=== PATIENT | female | born 1995 | race African-American/Black ===

== ENCOUNTER → 2017-01-08 | Outpatient (CLI) | payer OTHER ==
[~2017-01-08] MED LIST: BCPILLS PO
--- NOTE | 2017-01-08 10:55 | DIAGNOSTIC IMAGING REPORT ---
MANDIBLE 5 VIEWS CLINICAL HISTORY: Jaw pain. History of mandibular dislocation. FINDINGS: 5 views of the mandible are obtained. No prior studies are available for comparison at the time of dictation. The skeletal structures are well mineralized. There is no radiographic evidence of mandibular fracture. The temporomandibular joints appear to be in anatomic alignment. The bony orbits are intact as visualized. The paranasal sinuses and mastoid air cells are clear as imaged. The visual is calvarium appears intact. The imaged apical lung parenchyma appears clear. IMPRESSION: Unremarkable radiographic assessment of the mandible. Electronically signed by: Abhishek Palmer M.D. 01/08/2017 10:54 AM Dictated Date/Time: 01/08/2017 10:53 AM
== END | disposition home or self-care (01) ==
LOC: C.RDSM 09:50
PROVIDERS: ATTEND Family Medicine
DX: S03.00XA Dislocation of jaw, unspecified side, initial encounter (principal); X58.XXXA Exposure to other specified factors, initial encounter

== ENCOUNTER → 2017-02-13 | Outpatient (CLI) | payer OTHER ==
--- NOTE | 2017-02-13 11:41 | DIAGNOSTIC IMAGING REPORT ---
RIGHT SHOULDER 3 VIEWS CLINICAL HISTORY: Right shoulder pain. FINDINGS: 3 views of the right shoulder are obtained. No prior studies are available for comparison at the time of dictation. The skeletal structures are well mineralized. No fracture or dislocation is seen. The joint spaces are well-maintained. The Overlying soft tissues are normal in appearance. The imaged right lung parenchyma appears clear. IMPRESSION: Unremarkable radiographic assessment of the right shoulder. Electronically signed by: Abhishek Palmer M.D. 02/13/2017 11:39 AM Dictated Date/Time: 02/13/2017 11:38 AM
--- NOTE | 2017-02-13 11:41 | DIAGNOSTIC IMAGING REPORT ---
RIGHT FOOT MIN 3 VIEWS CLINICAL HISTORY: RIGHT FOOT/ANKLE AND SHOULDER PAIN Right pain COMPARISON: None. DISCUSSION: The bones and joint spaces appear intact. There is no evidence of fracture, dislocation or bony disease. There is no evidence for soft tissue swelling. IMPRESSION: Negative study. Electronically signed by: Lux Downey M.D. 02/13/2017 11:39 AM Dictated Date/Time: 02/13/2017 11:39 AM
--- NOTE | 2017-02-13 11:42 | DIAGNOSTIC IMAGING REPORT ---
RIGHT ANKLE MIN 3 VIEWS CLINICAL HISTORY: RIGHT FOOT/ANKLE AND SHOULDER PAIN Right pain COMPARISON: None. DISCUSSION: The bones and joint spaces appear intact. There is no evidence of fracture, dislocation or bony disease. There is no evidence for soft tissue swelling. IMPRESSION: Negative study. Electronically signed by: Lux Downey M.D. 02/13/2017 11:41 AM Dictated Date/Time: 02/13/2017 11:41 AM
== END | disposition home or self-care (01) ==
LOC: C.RDSM 14:24
PROVIDERS: ATTEND Family Medicine
DX: M25.571 Pain in right ankle and joints of right foot (principal); M25.511 Pain in right shoulder

== ENCOUNTER → 2017-05-20 | Outpatient (CLI) | payer OTHER ==
--- NOTE | 2017-05-20 15:03 | DIAGNOSTIC IMAGING REPORT ---
L FINGER(S) MIN 2 VIEWS HISTORY: 21 years-old Female LEFT 4TH FINGER PAIN S/P INJURY acute left fourth digit pain status post trauma COMPARISON: None available TECHNIQUE: 3 views of the fingers with attention to the fourth digit FINDINGS: There is an acute obliquely oriented fracture of the fourth middle phalanx with fracture line extending into the periarticular portion of the distal aspect middle phalanx medially. There is approximately 1 mm impaction with slight radial displacement of less than one cortex width. There is mild associated soft tissue swelling. No opaque foreign body. IMPRESSION: Acute obliquely oriented fracture of the fourth middle phalanx as above with mild soft tissue swelling. The above report was generated using voice recognition software. It may contain grammatical, syntax or spelling errors. Electronically signed by: Milind Rodriguez M.D. 05/20/2017 3:02 PM Dictated Date/Time: 05/20/2017 3:00 PM
== END | disposition home or self-care (01) ==
LOC: C.RDSM 12:16
PROVIDERS: ATTEND Family Medicine
DX: S62.621A Displaced fracture of middle phalanx of left index finger, initial encounter for closed fracture (principal); X58.XXXA Exposure to other specified factors, initial encounter

== ENCOUNTER 2017-07-19 21:07 | Emergency (ER) | payer OTHER ==
[~2017-07-19] VITALS: Ht 157.5 cm; Wt 68.2 kg
[2017-07-19 21:16] VITALS: TEMP 36.7; Ht 157.5 cm; Wt 68.2 kg
[2017-07-19] MEDS ORDERED: BCPILLS PO (21:37)
[2017-07-19] MEDS ORDERED: PROPARACAINE HCL 0.5% OP SOLN 15 ML BTL ONE (21:38)
[2017-07-19] MEDS ORDERED: CIPROFLOXACIN HCL 0.3% OP SOLN 2.5 ML BTL OP ONE (22:00)
[2017-07-19] MEDS ORDERED: NORCO 5/325MG HOME PACK PO ONE (22:00)
[2017-07-19 22:06] VITALS: BP 127/83; PULSE 83; O2SAT 99
--- NOTE | 2017-07-19 23:06 | EMERGENCY ROOM VISIT NOTE ---
ED Visit Note First contact with patient: 21:31 CHIEF COMPLAINT: Eye pain HISTORY OF PRESENT ILLNESS: This 21-year-old female patient presents to the emergency department complaining of pain in the left eye for the past 12 hours eye. She states her symptoms began earlier this morning and she has had tearing and watering from the eye since then. She feels like there is a foreign body, but she is not able to identify 1. There has been a constant moderate pain and irritation, redness and tearing in the eye. There is a mild blurring of vision at times and light bothers the eye. The vision has not been decreased over all. The patient rates the pain as dull and 8/10. The patient has not had previous injuries to this eye. Tetanus shot is reportedly up to date. REVIEW OF SYSTEMS: A 6 system review of systems was completed with positives and pertinent negatives listed in the HPI. ALLERGIES: Sulfa MEDICATIONS: No chronic medications PMH: No chronic medical disease SOCIAL HISTORY: Female who lives locally PHYSICAL EXAM: Vital Signs: Reviewed Nurse's notes, vital signs stable. Visual acuity 20/50 bilaterally.. GENERAL: This is a female, in no acute distress, but who is uncomfortable from the eye problem. Well-developed well-nourished. EYES: The pupils are equal round and reactive to light and accommodation. EOMs are full and without tenderness. There is discharge of clear tears from the left eye which is injected. There is no foreign body visible under the eyelid even after lid eversion. Funduscopic exam reveals no hemorrhages, papilledema, or other abnormalities. No foreign body was seen embedded in the cornea under slit lamp exam. Tonometry is normal bilateral. The cornea was clear and no hyphema was seen. Fluorescein uptake was observed with ultraviolet light significant for a corneal abrasion from 12:00 to 3:00. EMERGENCY DEPARTMENT COURSE: I examined the patient. Alcaine 2 drops were placed in the patient's left eye. A slit lamp exam was performed as above. Ciloxan two drops was placed in the patient's left eye. The patient was discharged home in good condition with additional instructions as below. Current/Historical Medications Scheduled Control Pills ( Control Pills), 1 TAB PO DAILY Allergies Coded Allergies: Sulfa Antibiotics (Verified Allergy, Unknown, unsure, 07/19/17) Vital Signs Date Time Temp Pulse Resp B/P (MAP) Pulse Ox O2 Delivery O2 Flow Rate FiO2 07/19/17 22:06 83 18 127/83 99 07/19/17 21:16 36.7 97 18 136/81 97 Room Air Medications Administered Medications (Trade) Dose Ordered Sig/Kyle Route Start Time Stop Time Status Last Admin Dose Admin Ciprofloxacin HCl (Ciprofloxacin 0.3% Op Soln) 2 drops NOW ONCE OP 07/19/17 22:00 07/19/17 22:01 DC 07/19/17 22:06 2 DROPS Acetaminophen/ Hydrocodone Bitart ([place] 5/325mg Home Pack) 1 homepack UD ONCE PO 07/19/17 22:00 07/19/17 22:01 DC 07/19/17 22:06 1 HOMEPACK Departure Information Impression Primary Impression: Corneal abrasion, left Dispostion Home / Self-Care Condition GOOD Forms HOME CARE DOCUMENTATION FORM, IMPORTANT VISIT INFORMATION Patient Instructions My [facility] Additional Instructions You were seen and evaluated today on an emergency basis only. This is not a substitute for, or an effort to provide, complete comprehensive medical care. It is not possible to recognize and treat all injuries or illnesses in a single emergency department visit. For this reason it is recommended that you followup with your primary care physician with any ongoing or persistent symptoms. Use Ciloxan Eye Drops: Instill 1-2 drops into the conjunctival sac every 2 hours while awake for 2 days and 1-2 drops every 4 hours while awake for the next 5 days [place] (hydrocodone/acetaminophen) 5/325 mg every 6 hours as needed for worsening breakthrough pain. Do not drink or drive on [place]. This medication will likely make you tired. Do not take [place] and Tylenol at the same time as both contain acetaminophen. [place] may cause constipation. You may wish to take an [id number] stool softener like Colace if this occurs. You are welcome to return to the emergency department anytime with new, worsening, or concerning symptoms.
== END 2017-07-19 22:07 | disposition home or self-care (01) ==
LOC: C.EDB 21:08 → C.EDD 22:07
DX: S05.02XA Injury of conjunctiva and corneal abrasion without foreign body, left eye, initial encounter (principal); X58.XXXA Exposure to other specified factors, initial encounter